=== PATIENT | female | born 1960 | race Caucasian/White ===

== ENCOUNTER 2017-02-09 08:32 | Day surgery (SDC) | payer OTHER ==
[~2017-02-09] VITALS: Ht 162.6 cm; Wt 61.0 kg
[2017-02-09] VITALS (9 sets, daily range): BP systolic 119–132; BP diastolic 70–79; PULSE 71–86; RESP 9–16; O2SAT 90–100
[2017-02-09] MEDS: Lactated Ringer's 1,000 ML IV SCH ×2 (05:37→11:27)
[~2017-02-09 08:32] MED LIST: CeFAZolin Inj 2 GM in IV Premix 1 EACH IV ONE; LEVO75TA4 PO; SERT20OR PO
[2017-02-09] MEDS ORDERED: fentaNYL-PF 50 mCg/mL 2 mL Inj ONE (08:33)
[2017-02-09] MEDS ORDERED: Ondansetron 2 mg/mL 2 mL Inj ONE (08:33)
[2017-02-09] MEDS ORDERED: MetoCLOpramide 5 mg/mL 2 mL Inj ONE (08:33)
[2017-02-09] MEDS ORDERED: Propofol 10,000 mCg/mL 20 mL Inj ONE (08:33)
[2017-02-09] MEDS ORDERED: Phenylephrine/NS-PF 100 mCg/mL 5 mL Syringe IVPUSH ONE (08:33)
[2017-02-09] MEDS ORDERED: Dexamethasone 4 mg/mL Inj ONE (08:33)
[2017-02-09] MEDS ORDERED: Albuterol HFA 200 Puff Inhaler (Vent Pts Only) ONE (08:33)
[2017-02-09] MEDS ORDERED: Bupivacaine-MPF 0.5% 30 mL Inj INJ ONE (11:45)
[2017-02-09] MEDS ORDERED: Lidocaine 2%-Epi 1:100,000 20 mL Inj INFILTRATE ONE (12:01)
[2017-02-09] MEDS ORDERED: Lactated Ringer's 500 ML IV PRN (12:21)
[2017-02-09] MEDS ORDERED: Lactated Ringer's 1,000 ML IV SCH (12:21)
--- NOTE | 2017-02-09 12:21 | PCM.HPANE ---
Patient Data Surgeon Admitting Provider: Attending Provider:Doreen Mcgee DPM Primary Care Physician:Eliana Larsen Other Provider:Enrique Mattson Anesthesia Reason for Visit Right Hallux Valgus, Hammertoe Ht/WT & BMI Height (Feet): 5 Height (Inches): 4.00 Weight (Kilograms): 61.0 Body Mass Index 22.00 Allergies Coded Allergies: atorvastatin (Verified Adverse Reaction, Severe, MYALGIAS, 02/08/17) Past Anesthesia History Anesthesia History: Denies:: Abnormal Airway, Anesthesia Reactions, Difficult Intubation, Fam Anesthesia Reaction, Fam Malignant Hypertherm, Malignant Hyperthermia Diabetes History Hx Diabetes?: Yes MRSA MRSA: No Medications Home Meds Incl Beta Maykel: No Reported Medications Sertraline HCl (Zoloft)20 Mg/1 Ml Oral.conc50 Mg PO DAILY #1 BOTTLE Ref 0 02/08/17 Levothyroxine 75 Mcg [id number] Mcg PO DAILY Ref 0 02/08/17 Discontinued Reported Medications Levothyroxine-Expunged Drug, Do Not Renew! (Synthroid-Expunged Drug, Do Not Renew!)75 Mcg Bdeldi23 Mcg PO DAILY 07/13/10 History History of ENT Problems?: No HEENT History: Denies:: Abnormal Airway Difficult Intubation Hearing Problem Hx of Heart Problems?: Yes Cardiovascular History: Positive for:: Chest Pain (06/2010 MPS WNL EF 74%) Denies:: Heart Murmur Hypertension (MILD HYPERLIPIDEMIA) Hx of Respiratory Problem?: No Respiratory History: Denies:: Use of C-PAP Machine Hx Neurologic Problems?: No Neurological History: Denies:: Alzheimer's Disease CVA Dementia Dizziness Headaches Parkinson's Disease Seizures Hx of GI Problems?: Yes Gastrointestinal History: Denies:: Rectal Bleeding (HX COLON POLYPS, HEMORRHOIDS) Other GI Pertinent History: S/P APPY Hx of Problems?: Yes Genitourinary History: Positive for:: Urinary Tract Infection (HX OF) Denies:: HX of Hemodialysis Kidney Stones HX of Peritoneal Dialysis: No Female Hx: Denies:: Currently Endometriosis Pelvic Inflammatory Problems with Breasts? Skin History: Denies:: History Skin Disorders? Pressure Ulcers Hx Musculoskeletal Problems?: Yes Musculoskeletal History: Positive for:: Musculoskeletal Trauma (HX OF LT SHOULDER INJURY) Denies:: Joint Replacement Hx of Psycho/Social Problems?: Yes Psycho Social History: Positive for:: Anxiety Denies:: Bipolar Disorder Hx Depression Suicide Attempt Hx Surgeries?: Yes (C/S, APPY,RT CTR) Hx Any Other Health Problems?: Yes Other History: Positive for:: Hospitalization (CHEST PAIN) Thyroid Disease Denies:: Cancer Endocrine Disease History Blood Transfusions: Denies:: Blood Transfuse Reaction Blood Transfusions Hx Diabetes: Yes Hx Alcohol Use: YesHx Substance Use: NoHave You Smoked inLast 12 mo: Yes Stop/Bang S-Snoring: Do You Snore Loudly: No T-Tired: feel tired, fatigued: No O-Obsered: Observed not breath: No P-Blood Pressure: treated: No B- Body Mass Index > 35 kg/m2: No A- Age over 50: Yes N- Neck Large Circumference: No G- Gender Male: No ADRIENNE Total Score: 1 Risk Assessment Category Category 1A: Patient has history of documented sleep apnea, and HAS NOT received any narcotic, sedative or anesthesia administration during this stay. Category 1B: Patient has history of documented sleep apnea, and HAS received any narcotic , sedative or anesthesia administration during this stay Category 2: Patient has SUSPECTED Obstructive Sleep Apnea, and HAS received any narcotic , sedative or anesthesia administration during this stay. Category 3: Patient has SUSPECTED Obstructive Sleep Apnea and HAS NOT received narcotic, sedative or anesthesia administration during this stay. Category 4: Outpatient in Procedural Areas with known sleep apnea or who screen positive for High Risk via the STOP/BANG questionnaire. Exam Exam Vital Signs Vital Signs Date Time Temp Pulse Resp B/P Pulse Ox O2 Delivery O2 Flow Rate FiO2 02/09/17 09:01 36.4 73 16 124/74 97 Room Air General Appearance: Alert, Oriented X3, Cooperative, No Acute Distress HEENT/AIRWAY: MP 2, Neck Movement (FROM), Mouth Opening (3 FBMO) Lungs: Clear to Auscultation, Normal Air Movement Heart: Exam Unremarkable, Regular Rate/Rhythm, No Murmurs/Rubs/Gallops Meds/Labs/Diagnostics Admission Meds Current Medications Lactated Ringer's (Lr) 1,000 ml @ 120 mls/hr Q8H20M IV Last administered on t 05:37; Start 02/09/17 at 05:00; Stop 02/09/17 at 13:19 Plan Impression Patient chart reviewed, patient interviewed and anesthestic plan with risks, benefits, and alternatives discussed, and informed consent obtained. NPO Status: 02/08 AT 1999 ASA Physical Status: ASA2 Mod Systemic Disease Anesthetic Plan: GA Bene/Risks/Altern/Consents: Yes HP Complete Prior to Induction: Yes Virgilio Parish MD Feb 09, 2017 09:11
[2017-02-09] MEDS ORDERED: fentaNYL-PF 50 mCg/mL 2 mL Inj IVPUSH PRN (12:25)
[2017-02-09] MEDS ORDERED: Ondansetron 2 mg/mL 2 mL Inj IVPUSH PRN (12:25)
[2017-02-09] MEDS ORDERED: Atropine 0.4 mg/mL Inj IVPUSH PRN (12:25)
[2017-02-09] MEDS ORDERED: Labetalol 5 mg/mL 4 mL Inj IV PRN (12:25)
[2017-02-09] MEDS ORDERED: Phenylephrine 10,000 mCg/mL Inj IVPUSH PRN (12:25)
[2017-02-09] MEDS ORDERED: HYDROmorphone 1 mg/mL Inj IVPUSH PRN (12:25)
[2017-02-09] MEDS ORDERED: MetoCLOpramide 5 mg/mL 2 mL Inj IVPUSH PRN (12:25)
[2017-02-09] MEDS ORDERED: EPHEDrine Sulfate 50 mg/mL Inj IVPUSH PRN (12:25)
[2017-02-09] MEDS ORDERED: Dexamethasone 4 mg/mL Inj INTRARTICU ONE (13:22)
--- NOTE | 2017-02-09 14:59 | PCM.ANEP2 ---
Post Anesthesia Evaluation ASA/CMS Post Anesthesia VS in Patient's Normal Range?: Yes Resp Stable; Airway Patent?: Yes CV Function & Hydration Stable: Yes Mental Status Recovered?: Yes Pain control Satisfactory?: Yes N/V Control Satisfactory?: Yes Virgilio Parish MD Feb 09, 2017 14:59
--- NOTE | 2017-02-09 14:59 | PCM.ANEP1 ---
Post Anesthesia Phase 1 PACU Phase 1 Assessment Vital Signs Vital Signs Date Time Temp Pulse Resp B/P Pulse Ox O2 Delivery O2 Flow Rate FiO2 02/09/17 14:12 36.2 73 12 119/72 96 Room Air 02/09/17 14:10 71 15 125/79 97 Room Air 02/09/17 14:04 36.8 76 13 130/71 98 Nasal Cannula 2 02/09/17 14:01 78 11 122/76 97 Nasal Cannula 2 02/09/17 13:55 80 9 124/77 96 Nasal Cannula 2 02/09/17 13:50 81 10 132/71 90 Room Air 02/09/17 13:46 36.5 86 13 132/71 95 Room Air 02/09/17 09:01 36.4 73 16 124/74 97 Room Air Anesthetic Administered: GA Level of Alertness: Awake, talking SANTOS's with Equal Strength: Yes Pain: No Nausea or Vomiting: No Oxygen Delivery: Simple Mask Lungs: Clear to Auscultation, Normal Air Movement Dermatome Level: Full Sensation Virgilio Parish MD Feb 09, 2017 14:59
--- NOTE | 2017-02-28 11:10 | OP ---
[address] [address] OPERATIVE REPORT PATIENT: FERNANDA FRANKS : 1960 MR#: [id number] ADMIT: 02/09/2017 JOB ID: [id number] DATE OF SURGERY: 02/09/2017 SURGEON: Doreen Mcgee DPM. COFFIN MAKER: Jose Everett DPM. PREOPERATIVE DIAGNOSIS(ES): 1. Painful hammertoe, 3rd right toe. 2. Painful bunion, right foot. POSTOPERATIVE DIAGNOSIS(ES): 1. Painful hammertoe, 3rd right toe. 2. Painful bunion, right foot. PROCEDURE: 1. Eddie bunionectomy, right foot. 2. Exostectomy, 3rd right toe, at the proximal interphalangeal joint. ANESTHESIA: General. TOURNIQUET: None. DESCRIPTION OF PROCEDURE: The patient was brought to the operating table and placed in a supine position. After general anesthesia was administered, I injected 5 cc of a 1:1 mixture of lidocaine 1% plain and Marcaine 0.5% plain as a Saenz block to the right 1st metatarsal. An additional 2 cc of a 1:1 mixture of lidocaine 1% plain and Marcaine 0.5% plain was administered as a digital block to the 3rd right toe. The foot was then prepped and draped in the usual sterile technique. Attention was then directed to the dorsal aspect of the 1st metatarsophalangeal joint where a 5 cm linear incision was made medial to the extensor hallucis longus tendon. This incision was deepened down to the joint capsule medial to the extensor hallucis longus using a 15 blade. Any bleeders were cauterized using a Bovie. A tissue plane was created between the capsule of the 1st metatarsophalangeal joint and the overlying subcutaneous tissue along the medial aspect of the 1st metatarsal head. The neurovascular bundle was then retracted medially along with the subcutaneous tissue. A linear capsulotomy was made along the medial aspect of the 1st metatarsal head and the soft tissue overlying the medial eminence was reflected away from the bone. The enlarged medial eminence was then resected using a sagittal saw, and the bone was removed in toto. The hallux position was tested, and it was found that the toe tracked in a lateral direction. Using a Metzenbaum scissors, the lateral collateral ligaments were incised until the lateral pull was no longer present. Attention was then redirected to the medial aspect of the 1st metatarsal head. A 0.62 K-wire was driven from medial to lateral around the center of the 1st metatarsal head and this was used as an apex for a "V" osteotomy cut, which was made from medial to lateral through both cortices. The capital fragment was then shifted medially approximately 5 mm. An approximately 2 mm wedge of bone was then resected from the dorsal arm of the osteotomy with the base of the wedge being medial and apex lateral. The head of the first metatarsal was then shifted and the position of the hallux was checked and found to be adequate. A 0.45 K-wire was then driven from dorsal to plantar through the metatarsal head across the plantar osteotomy . A second K-wire wound was driven lateral to the first one. Attention was then directed back to the first K-wire where a glide hole was drilled across the near cortex. A countersink then was used over the proximal cortex of the bone. The length of the K-wire was then determined using a depth gauge. An 18-mm 3.5 mm cannulated cancellous screw was then used to fixate the osteotomy site. Position of the screw was checked using a mini C-arm and found to be in good position. The second K-wire was then removed. The excess medial eminence proximally was then resected using a sagittal saw. The area was then copiously flushed with lactated Ringer solution. The suspensory ligament to the tibial sesamoid was pulled proximally and medially so that it was aligned under the metatarsal head and sutured along with the joint capsule. The capsule was closed using 3-0 Vicryl, and the subcutaneous tissue was closed using 4-0 Vicryl in a running pattern Attention was then directed to the dorsal aspect of the 3rd toe. A 2 cm linear incision was made centered over the proximal interphalangeal joint. This was deepened down to the joint capsule using sharp and dull dissection, and Boving any bleeders as necessary for hemostasis. The joint capsule was incised linearly from proximal and distal, and the lateral aspect of the proximal phalanx head and base of the intermediate phalanx was exposed. It was noted that there was a small bony prominence noted at the head of the proximal phalanx. Using a rongeur this was excised and removed. The area was then copiously flushed with lactated Ringer solution. The joint capsule was then closed using 4-0 Vicryl, and subcutaneous tissue was also closed using 3-0 and 4-0 Vicryl. The skin was reapproximated using 4-0 nylon. The incision on the 1st metatarsophalangeal joint was dressed using Steri-Strips, bacitracin, 4 x 4 gauze, Kerlix. The incision over the 3rd toe was dressed using bacitracin, Jimenez silk, 2 x 2 gauze and Kerlix. The foot was then wrapped using Maneul wrap. The patient tolerated the procedure and anesthesia well, left the operating room with vital signs stable and vascular status intact to all toes of the right foot. The patient was to be discharged home when she was medically stable from anesthesia. JUNITO
== END 2017-02-09 23:59 | disposition home or self-care (01) ==
LOC: SAS 08:32
PROVIDERS: ATTEND Podiatrist
DX: M21.611 Bunion of right foot (principal); M20.41 Other hammer toe(s) (acquired), right foot
CPT/HCPCS: 28285; 28296; 97116; C1713; J0690; J1100; J1885; J2250; J2370; J2405; J2765; J3010; J7120